=== PATIENT | female | born 1975 | race Caucasian/White ===

== ENCOUNTER 2022-02-28 23:01 | Inpatient (IN) ==
[2022-03-01] MEDS ORDERED: *HR* LORazepam 1 MG TABLET PO PRN (02:37)
[2022-03-01] MEDS ORDERED: haloperidoL 5 MG TABLET PO PRN (02:37)
[2022-03-01] MEDS ORDERED: *HR* LORazepam 2 MG/ML VIAL IM PRN (02:37)
[2022-03-01] MEDS ORDERED: Haloperidol Lactate 5 MG/ML VIAL IM PRN (02:37)
[2022-03-01] MEDS ORDERED: Mag Hydrox/Al Hydrox/Simeth 30 ML UDC PO PRN (02:37)
[2022-03-01] MEDS ORDERED: MOM Conc 10 ML UD.LIQ PO PRN (02:37)
[2022-03-01] MEDS ORDERED: hydrOXYzine pamoate 25 MG CAPSULE PO PRN (02:37)
[2022-03-01 04:06] LABS: Influenza A PCR Negative (Negative); Influenza B PCR Negative (Negative); Resp. Syncytial Virus PCR Negative (Negative)
[2022-03-01 04:08] LABS: SARS-CoV-2 by PCR (In House) Negative (Negative)
[2022-03-01] MEDS ORDERED: Ondansetron ODT 4 MG TAB.RAPDIS PO PRN (14:38)
[2022-03-01] MEDS: hydrOXYzine pamoate 25 MG CAPSULE PO SCH ×2 (15:17→20:20)
[2022-03-01] MEDS: Celecoxib 200 MG CAPSULE PO SCH (15:49)
[2022-03-01] MEDS: hydrOXYzine pamoate 25 MG CAPSULE PO PRN (17:52)
[2022-03-01] MEDS: Ziprasidone 20 MG CAPSULE PO SCH (20:17)
[2022-03-01] MEDS: lamoTRIgine 100 MG TABLET PO SCH (20:18)
[2022-03-01] MEDS ORDERED: lamoTRIgine 25 MG TABLET PO SCH (21:00)
[2022-03-01] MEDS: Budesonide/Formoterol 80/4.5 1 PUFF INH IH SCH (21:34)
[2022-03-02] MEDS: hydrOXYzine pamoate 25 MG CAPSULE PO SCH ×3 (09:33→20:44)
[2022-03-02] MEDS: lamoTRIgine 100 MG TABLET PO SCH ×2 (09:34→20:41)
[2022-03-02] MEDS: Celecoxib 200 MG CAPSULE PO SCH (09:34)
[2022-03-02] MEDS: Nicotine 21 MG PATCH.TD24 TD SCH (09:57)
[2022-03-02] MEDS: Budesonide/Formoterol 80/4.5 1 PUFF INH IH SCH ×2 (11:50→20:53)
[2022-03-02] MEDS: hydrOXYzine pamoate 25 MG CAPSULE PO PRN ×2 (13:00→18:05)
[2022-03-02] MEDS: Acetaminophen 325 MG TABLET PO PRN (16:12)
[2022-03-02] MEDS: Ziprasidone 20 MG CAPSULE PO SCH ×2 (20:44→20:50)
[2022-03-02] MEDS ORDERED: lamoTRIgine 25 MG TABLET PO SCH (21:00)
[2022-03-03] MEDS: Nicotine 21 MG PATCH.TD24 TD SCH (08:50)
[2022-03-03] MEDS: lamoTRIgine 100 MG TABLET PO SCH (08:50)
[2022-03-03] MEDS: Celecoxib 200 MG CAPSULE PO SCH (08:50)
[2022-03-03] MEDS: hydrOXYzine pamoate 25 MG CAPSULE PO SCH ×3 (08:51→20:38)
[2022-03-03] MEDS ORDERED: VIVITROL 380 MG IM SCH (09:00)
[2022-03-03] MEDS: Budesonide/Formoterol 80/4.5 1 PUFF INH IH SCH ×2 (11:00→22:59)
[2022-03-03] MEDS ORDERED: lamoTRIgine 25 MG TABLET PO SCH (13:15)
[2022-03-03] MEDS ORDERED: lamoTRIgine 25 MG TABLET PO ONE (13:30)
[2022-03-03] MEDS: Ziprasidone 20 MG CAPSULE PO SCH ×2 (20:37)
[2022-03-03] MEDS ORDERED: lamoTRIgine 100 MG TABLET PO SCH (21:00)
[2022-03-04] MEDS: Budesonide/Formoterol 80/4.5 1 PUFF INH IH SCH ×2 (08:15→20:34)
[2022-03-04] MEDS: hydrOXYzine pamoate 25 MG CAPSULE PO SCH ×3 (08:16→20:38)
[2022-03-04] MEDS: Celecoxib 200 MG CAPSULE PO SCH (08:21)
[2022-03-04] MEDS: Nicotine 21 MG PATCH.TD24 TD SCH (08:22)
[2022-03-04] MEDS: Acetaminophen 325 MG TABLET PO PRN ×2 (10:45→20:38)
[2022-03-04] MEDS ORDERED: lamoTRIgine 25 MG TABLET PO ONE (11:00)
[2022-03-04] MEDS: hydrOXYzine pamoate 25 MG CAPSULE PO PRN ×2 (12:35→19:01)
[2022-03-04] MEDS: Ibuprofen 400 MG TABLET PO PRN (12:35)
[2022-03-04] MEDS: Ziprasidone 20 MG CAPSULE PO SCH ×2 (20:35→20:37)
[2022-03-04] MEDS: QUEtiapine Fumarate 25 MG TABLET PO PRN (20:38)
[2022-03-04] MEDS: lamoTRIgine 100 MG TABLET PO SCH (20:38)
[2022-03-05] MEDS: Nicotine 21 MG PATCH.TD24 TD SCH (08:40)
[2022-03-05] MEDS: lamoTRIgine 100 MG TABLET PO SCH ×2 (08:42→20:34)
[2022-03-05] MEDS: Celecoxib 200 MG CAPSULE PO SCH (08:42)
[2022-03-05] MEDS: hydrOXYzine pamoate 25 MG CAPSULE PO SCH ×3 (08:43→20:33)
[2022-03-05] MEDS: Budesonide/Formoterol 80/4.5 1 PUFF INH IH SCH ×2 (08:44→22:16)
[2022-03-05] MEDS: Ziprasidone 20 MG CAPSULE PO SCH ×3 (10:24→20:50)
[2022-03-05] MEDS: Acetaminophen 325 MG TABLET PO PRN (13:47)
[2022-03-05] MEDS: tiZANidine 4 MG TABLET PO PRN (13:47)
[2022-03-05] MEDS: hydrOXYzine pamoate 25 MG CAPSULE PO PRN ×2 (13:49→16:53)
[2022-03-05] MEDS: Ibuprofen 400 MG TABLET PO PRN (16:52)
[2022-03-05] MEDS: QUEtiapine Fumarate 25 MG TABLET PO PRN (20:34)
[2022-03-06] MEDS: Nicotine 21 MG PATCH.TD24 TD SCH (08:43)
[2022-03-06] MEDS: hydrOXYzine pamoate 25 MG CAPSULE PO SCH ×3 (08:45→21:10)
[2022-03-06] MEDS: lamoTRIgine 100 MG TABLET PO SCH ×2 (08:45→21:11)
[2022-03-06] MEDS: Celecoxib 200 MG CAPSULE PO SCH (08:45)
[2022-03-06] MEDS: Budesonide/Formoterol 80/4.5 1 PUFF INH IH SCH ×2 (09:55→21:14)
[2022-03-06] MEDS: Saline Nasal Spray 44 ML BOTTLE NS PRN (12:15)
[2022-03-06] MEDS: Neosporin OINT 15 GM TUBE TP PRN ×2 (12:15→15:09)
[2022-03-06] MEDS: hydrOXYzine pamoate 25 MG CAPSULE PO PRN ×2 (12:16→18:40)
[2022-03-06] MEDS: QUEtiapine Fumarate 25 MG TABLET PO PRN (21:10)
[2022-03-06] MEDS: Ziprasidone 20 MG CAPSULE PO SCH ×2 (21:10)
[2022-03-07] MEDS: Nicotine 21 MG PATCH.TD24 TD SCH (08:34)
[2022-03-07] MEDS: hydrOXYzine pamoate 25 MG CAPSULE PO SCH ×3 (08:35→20:28)
[2022-03-07] MEDS: Celecoxib 200 MG CAPSULE PO SCH (08:36)
[2022-03-07] MEDS: lamoTRIgine 100 MG TABLET PO SCH ×2 (08:36→20:27)
[2022-03-07] MEDS: Budesonide/Formoterol 80/4.5 1 PUFF INH IH SCH ×2 (10:05→20:31)
[2022-03-07] MEDS: SUMAtriptan succinate 50 MG TABLET PO PRN (10:31)
[2022-03-07] MEDS: Saline Nasal Spray 44 ML BOTTLE NS PRN ×2 (11:40→18:29)
[2022-03-07] MEDS: Neosporin OINT 15 GM TUBE TP PRN ×2 (11:41→18:28)
[2022-03-07] MEDS: hydrOXYzine pamoate 25 MG CAPSULE PO PRN (11:42)
[2022-03-07] MEDS: tiZANidine 4 MG TABLET PO PRN (16:16)
[2022-03-07] MEDS: Acetaminophen 325 MG TABLET PO PRN (16:16)
[2022-03-07] MEDS: Ziprasidone 20 MG CAPSULE PO SCH ×2 (20:27)
[2022-03-07] MEDS: QUEtiapine Fumarate 25 MG TABLET PO PRN (20:29)
[2022-03-08] MEDS: Nicotine 21 MG PATCH.TD24 TD SCH (08:23)
[2022-03-08] MEDS: Celecoxib 200 MG CAPSULE PO SCH (08:24)
[2022-03-08] MEDS: lamoTRIgine 100 MG TABLET PO SCH ×2 (08:25→20:21)
[2022-03-08] MEDS: hydrOXYzine pamoate 25 MG CAPSULE PO SCH ×3 (08:25→20:21)
[2022-03-08] MEDS: Budesonide/Formoterol 80/4.5 1 PUFF INH IH SCH ×2 (10:06→20:21)
[2022-03-08] MEDS: tiZANidine 4 MG TABLET PO PRN ×2 (14:52→20:24)
[2022-03-08] MEDS: Acetaminophen 325 MG TABLET PO PRN ×2 (14:52→20:24)
[2022-03-08] MEDS: hydrOXYzine pamoate 25 MG CAPSULE PO PRN (18:30)
[2022-03-08] MEDS ORDERED: NALTREXONE MICROSPHERES 380 MG IM SCH (18:30)
[2022-03-08] MEDS: Ziprasidone 20 MG CAPSULE PO SCH ×2 (20:20→20:21)
[2022-03-08] MEDS: QUEtiapine Fumarate 25 MG TABLET PO PRN (20:20)
[2022-03-09] MEDS: hydrOXYzine pamoate 25 MG CAPSULE PO PRN (05:46)
[2022-03-09] MEDS: Nicotine 21 MG PATCH.TD24 TD SCH (08:07)
[2022-03-09] MEDS: lamoTRIgine 100 MG TABLET PO SCH ×2 (08:08→20:52)
[2022-03-09] MEDS: Celecoxib 200 MG CAPSULE PO SCH (08:08)
[2022-03-09] MEDS: hydrOXYzine pamoate 25 MG CAPSULE PO SCH ×3 (08:08→20:53)
[2022-03-09] MEDS: Budesonide/Formoterol 80/4.5 1 PUFF INH IH SCH ×2 (11:07→20:54)
[2022-03-09] MEDS: tiZANidine 4 MG TABLET PO PRN ×2 (15:53→20:52)
[2022-03-09] MEDS: Acetaminophen 325 MG TABLET PO PRN ×2 (15:53→20:52)
[2022-03-09] MEDS: Ibuprofen 400 MG TABLET PO PRN (17:27)
[2022-03-09] MEDS: Ziprasidone 20 MG CAPSULE PO SCH ×2 (20:51→20:52)
[2022-03-09] MEDS: QUEtiapine Fumarate 25 MG TABLET PO PRN (20:52)
[2022-03-09] MEDS: SUMAtriptan succinate 50 MG TABLET PO PRN (20:59)
[2022-03-10] MEDS: Budesonide/Formoterol 80/4.5 1 PUFF INH IH SCH ×2 (09:30→20:34)
[2022-03-10] MEDS: Nicotine 21 MG PATCH.TD24 TD SCH (09:31)
[2022-03-10] MEDS: lamoTRIgine 100 MG TABLET PO SCH ×2 (09:33→20:33)
[2022-03-10] MEDS: Celecoxib 200 MG CAPSULE PO SCH (09:33)
[2022-03-10] MEDS: hydrOXYzine pamoate 25 MG CAPSULE PO SCH ×3 (09:34→20:34)
[2022-03-10] MEDS: Saline Nasal Spray 44 ML BOTTLE NS PRN (10:23)
[2022-03-10] MEDS: hydrOXYzine pamoate 25 MG CAPSULE PO PRN ×2 (11:39→23:10)
[2022-03-10] MEDS: Ziprasidone 20 MG CAPSULE PO SCH ×2 (20:32→20:33)
[2022-03-10] MEDS: QUEtiapine Fumarate 25 MG TABLET PO PRN (20:36)
[2022-03-10] MEDS: tiZANidine 4 MG TABLET PO PRN (20:37)
[2022-03-11] MEDS: Nicotine 21 MG PATCH.TD24 TD SCH (08:29)
[2022-03-11] MEDS: Saline Nasal Spray 44 ML BOTTLE NS PRN ×2 (08:29→21:02)
[2022-03-11] MEDS: lamoTRIgine 100 MG TABLET PO SCH ×2 (08:29→20:56)
[2022-03-11] MEDS: hydrOXYzine pamoate 25 MG CAPSULE PO SCH ×3 (08:29→20:57)
[2022-03-11] MEDS: Celecoxib 200 MG CAPSULE PO SCH (08:29)
[2022-03-11] MEDS: Budesonide/Formoterol 80/4.5 1 PUFF INH IH SCH ×2 (08:31→21:01)
[2022-03-11] MEDS: hydrOXYzine pamoate 25 MG CAPSULE PO PRN (13:20)
[2022-03-11] MEDS: Ziprasidone 20 MG CAPSULE PO SCH ×2 (20:56)
[2022-03-11] MEDS: QUEtiapine Fumarate 25 MG TABLET PO PRN (20:57)
[2022-03-12] MEDS: Nicotine 21 MG PATCH.TD24 TD SCH (08:48)
[2022-03-12] MEDS: Celecoxib 200 MG CAPSULE PO SCH (08:49)
[2022-03-12] MEDS: lamoTRIgine 100 MG TABLET PO SCH ×2 (08:50→21:00)
[2022-03-12] MEDS: hydrOXYzine pamoate 25 MG CAPSULE PO SCH ×3 (08:50→21:00)
[2022-03-12] MEDS: Budesonide/Formoterol 80/4.5 1 PUFF INH IH SCH ×2 (08:51→20:59)
[2022-03-12] MEDS: Saline Nasal Spray 44 ML BOTTLE NS PRN ×2 (15:23→20:59)
[2022-03-12] MEDS: Ibuprofen 400 MG TABLET PO PRN (17:01)
[2022-03-12] MEDS: tiZANidine 4 MG TABLET PO PRN (17:02)
[2022-03-12] MEDS: Ziprasidone 20 MG CAPSULE PO SCH ×2 (21:00)
[2022-03-12] MEDS: QUEtiapine Fumarate 100 MG TABLET PO SCH (21:00)
[2022-03-13] MEDS: Celecoxib 200 MG CAPSULE PO SCH (08:55)
[2022-03-13] MEDS: Saline Nasal Spray 44 ML BOTTLE NS PRN ×3 (08:55→20:18)
[2022-03-13] MEDS: hydrOXYzine pamoate 25 MG CAPSULE PO SCH ×3 (08:55→20:20)
[2022-03-13] MEDS: lamoTRIgine 100 MG TABLET PO SCH ×2 (08:56→20:20)
[2022-03-13] MEDS: Nicotine 21 MG PATCH.TD24 TD SCH (08:56)
[2022-03-13] MEDS: Budesonide/Formoterol 80/4.5 1 PUFF INH IH SCH ×2 (08:57→20:19)
[2022-03-13] MEDS: Acetaminophen 325 MG TABLET PO PRN (15:07)
[2022-03-13] MEDS: tiZANidine 4 MG TABLET PO PRN (15:08)
[2022-03-13] MEDS: Ziprasidone 20 MG CAPSULE PO SCH ×2 (20:20→20:21)
[2022-03-13] MEDS: QUEtiapine Fumarate 100 MG TABLET PO SCH (20:21)
[2022-03-14] MEDS: lamoTRIgine 100 MG TABLET PO SCH (08:16)
[2022-03-14] MEDS: Celecoxib 200 MG CAPSULE PO SCH (08:16)
[2022-03-14] MEDS: hydrOXYzine pamoate 25 MG CAPSULE PO SCH ×2 (08:17→14:26)
[2022-03-14] MEDS: Nicotine 21 MG PATCH.TD24 TD SCH (08:17)
[2022-03-14] MEDS: Saline Nasal Spray 44 ML BOTTLE NS PRN (08:18)
[2022-03-14 10:04] VITALS: BP 112/73; PULSE 94; TEMP 97.9; O2SAT 99
[2022-03-14] MEDS: Budesonide/Formoterol 80/4.5 1 PUFF INH IH SCH (10:26)
[2022-03-14] MEDS: hydrOXYzine pamoate 25 MG CAPSULE PO PRN (12:34)
[2022-03-14] MEDS: SUMAtriptan succinate 50 MG TABLET PO PRN (15:01)
[2022-03-14] MEDS: tiZANidine 4 MG TABLET PO PRN (15:43)
[2022-03-14] MEDS: Ibuprofen 400 MG TABLET PO PRN (15:43)
== END 2022-03-14 18:41 | disposition home or self-care (01) | DRG 885 ==
LOC: EMEROOARM 23:01 → 1ANU 03-01 02:05
PROVIDERS: ADMIT Psychiatry & Neurology Psychiatry; ATTEND Psychiatry & Neurology Psychiatry